=== PATIENT | female | born 1995 | race Caucasian/White ===

== ENCOUNTER 2018-06-11 08:00 | Emergency (ER) | payer OTHER ==
[2018-06-11 08:08] VITALS: BP 132/75
[2018-06-11 08:40] LABS: BILIRUBIN,URINE NEGATIVE (NEGATIVE); GLUCOSE, URINE (UA) NEGATIVE (NEGATIVE); KETONES,URINE (UA) NEGATIVE (NEGATIVE); LEUKOCYTE ESTERASE, URINE NEGATIVE (NEGATIVE); NITRITE,URINE NEGATIVE (NEGATIVE); OCCULT BLOOD,URINE LARGE (NEGATIVE); PROTEIN,URINE NEGATIVE (NEGATIVE); UROBILINOGEN,URINE 0.2 (NORMAL) E.U./dL (NORMAL)
--- NOTE | 2018-06-11 08:40 | ED Physician Documentation ---
PD HPI FEMALE - Stated complaint Stated Complaint: 12 WKS PREG/BLEEDING - Chief complaint Chief Complaint: Abd Pain - History obtained from History obtained from: Patient, Family - History of Present Illness Timing - onset: Yesterday Timing - duration: Days (1) Timing - details: Gradual onset Pain level max: 3 Pain level max: 3 Associated symptoms: Pelvic pain (Cramping), Vaginal bleeding. No: Vaginal discharge Contributing factors: (Approximately 12 weeks EGA) OB-HAM FACER History: G (3), P (0), Termination(s) (1), Miscarriage(s) (1) Recently seen: Not recently seen Review of Systems Constitutional: denies: Fever, Chills Respiratory: denies: Cough GI: reports: Abdominal Pain (Crampy pelvic pain). denies: Vomiting : reports: Now EGA (12 weeks). denies: Dysuria, Frequency, Hesitancy Skin: denies: Rash Musculoskeletal: denies: Neck pain, Back pain Neurologic: denies: Headache PD PAST MEDICAL HISTORY - Past Medical History Past Medical History: No - Past Surgical History Past Surgical History: No - Present Medications Home Medications: Ambulatory Orders Medication Instructions Recorded Confirmed Pnv No.95/Ferrous Fum/Folic AC 1 each PO 06/11/18 [ Caplet] - Allergies Allergies/Adverse Reactions: Allergies Allergy/AdvReac Type Severity Reaction Status Date / Time No Known Drug Allergies Allergy Verified 06/11/18 08:08 - Living Situation Living Situation: reports: With family Living Arrangement: reports: At home - Social History Does the pt drink ETOH?: No Does the pt have substance abuse?: No - Family History Family history: reports: Non contributory PD ED PE NORMAL - Vitals Vital signs reviewed: Yes - General General: Alert and oriented X 3, No acute distress - HEENT HEENT: Moist mucous membranes - Neck Neck: Supple, no meningeal sign - Cardiac Cardiac: RRR, Strong equal pulses - Respiratory Respiratory: No respiratory distress, Clear bilaterally - Abdomen Abdomen: Soft, Non tender, Non distended - Derm Derm: Warm and dry - Extremities Extremities: No edema - Neuro Neuro: Alert and oriented X 3 - Psych Psych: Normal mood, Normal affect Results - Vitals Vitals: Vital Signs - 24 hr 06/11/18 08:06 Temperature 36.7 C Heart Rate 94 Respiratory 18 Rate Blood Pressure 132/75 H O2 Saturation 98 Oxygen O2 Source Room air - Labs Labs: Laboratory Tests 06/11/18 06/11/18 06/11/18 08:15 08:40 08:40 WBC 9.4 RBC 4.29 Hgb 13.2 Hct 39.2 MCV 91.2 MCH 30.7 MCHC 33.7 RDW 14.3 Plt Count 169 MPV 9.7 Neut # (Auto) 6.6 Lymph # (Auto) 1.9 [place] # (Auto) 0.7 Eos # (Auto) 0.1 Baso # (Auto) 0.0 Absolute Nucleated RBC 0.00 Nucleated RBC % 0.1 Sodium 136 Potassium 3.8 Chloride 104 Carbon Dioxide 22 Anion Gap 10.0 BUN 9 Creatinine 0.5 Estimated GFR (MDRD) 152 Glucose 93 Calcium 9.0 Total Bilirubin 0.4 AST 23 ALT 27 Alkaline Phosphatase 47 Total Protein 6.9 Albumin 4.2 Globulin 2.7 Albumin/Globulin Ratio 1.6 Lipase 25 HCG, Quant Urine Color YELLOW Urine Clarity HAZY Urine pH 7.0 Ur Specific [place] 1.015 Urine Protein NEGATIVE Urine Glucose (UA) NEGATIVE Urine Ketones NEGATIVE Urine Occult Blood LARGE H Urine Nitrite NEGATIVE Urine Bilirubin NEGATIVE Urine Urobilinogen 0.2 (NORMAL) Ur Leukocyte Esterase NEGATIVE Urine RBC 0-5 Urine WBC 0-3 Ur Squamous Epith Cells MANY Squamous H Amorphous Sediment Marked Urine Bacteria Few Urine Mucus Few Strands Ur Microscopic Review INDICATED Urine Culture Comments NOT INDICATED Urine HCG, Qual POSITIVE 06/11/18 08:40 WBC RBC Hgb Hct MCV MCH MCHC RDW Plt Count MPV Neut # (Auto) Lymph # (Auto) [place] # (Auto) Eos # (Auto) Baso # (Auto) Absolute Nucleated RBC Nucleated RBC % Sodium Potassium Chloride Carbon Dioxide Anion Gap BUN Creatinine Estimated GFR (MDRD) Glucose Calcium Total Bilirubin AST ALT Alkaline Phosphatase Total Protein Albumin Globulin Albumin/Globulin Ratio Lipase HCG, Quant 94088.00 Urine Color Urine Clarity Urine pH Ur Specific [place] Urine Protein Urine Glucose (UA) Urine Ketones Urine Occult Blood Urine Nitrite Urine Bilirubin Urine Urobilinogen Ur Leukocyte Esterase Urine RBC Urine WBC Ur Squamous Epith Cells Amorphous Sediment Urine Bacteria Urine Mucus Ur Microscopic Review Urine Culture Comments Urine HCG, Qual - Rads (name of study) OB US Radiology: Prelim report reviewed, EMP read contemporaneously, See rad report (Single viable intrauterine at EGA 12 weeks 0 days with MARILIA 12/24/2018 based on crown-rump length, which is concordant with clinical dates. 2. Assigned dating is MARILIA 12/26/2018 based on LMP. 3. No subchorionic hemorrhage or other complications. 4. Both ovaries and adnexa are normal. ) PD MEDICAL DECISION MAKING - ED course Complexity details: reviewed results, re-evaluated patient, considered differential, d/w patient, d/w family ED course: Pt with threatened . Normal labs and US. viable IUP. Will follow up with OB. Patient counseled regarding signs and symptoms for which I believe and urgent re-evaluation would be necessary. Patient with good understanding of and agreement to plan and is comfortable going home at this time This document was made in part using voice recognition software. While efforts are made to proofread this document, sound alike and grammatical errors may occur. Departure - Departure Disposition: 01 Home, Self Care Clinical Impression: Threatened affecting intrauterine Condition: Good Instructions: ED Miscarriage Poss Follow-Up: Jammie Hogan, [employer] OPERATOR [Primary Care Provider] - Within 3 Days Comments: Follow-up with your doctor in 3-4 days for repeat hCG. Your hCG is approximately 23,424 today. Your estimated gestational age is 12 weeks and 0 days. You there is an intrauterine with normal cardiac activity. Return if you worsen. Discharge Date/Time: 06/11/18 09:45
[2018-06-11 08:48] LABS: CLARITY,URINE HAZY (CLEAR); HCG UR QUAL POSITIVE
[2018-06-11 08:48] LABS: BASOPHILS % (AUTO) 0.5 %; EOSINOPHILS # (AUTO) 0.1 10^3/uL (0.0-0.7); EOSINOPHILS % (AUTO) 1.3 %; HGB - HEMOGLOBIN 13.2 g/dL (12.0-16.0); LYMPHOCYTES # (AUTO) 1.9 10^3/uL (1.5-3.5); LYMPHOCYTES % (AUTO) 20.3 %; MEAN CORPUSCULAR HEMOGLOBIN 30.7 pg (27.0-31.0); MEAN CORPUSCULAR HGB CONC 33.7 g/dL (32.0-36.0); MEAN CORPUSCULAR VOLUME 91.2 fL (81.0-99.0); MEAN PLATELET VOLUME 9.7 fL (7.9-10.8); MONOCYTES # (AUTO) 0.7 10^3/uL (0.0-1.0); NEUTROPHILS # (AUTO) 6.6 10^3/uL (1.5-6.6); NEUTROPHILS % (AUTO) 69.9 %; PLT - PLATELET COUNT 169 10^3/uL (130-450); RED BLOOD COUNT 4.29 10^6/uL (4.20-5.40); RED CELL DISTRIBUTION WIDTH 14.3 % (12.0-15.0); WHITE BLOOD COUNT 9.4 x10^3/uL (4.8-10.8)
[2018-06-11 09:00] LABS: AMORPHOUS SEDIMENT,UR Marked /LPF; BACTERIA,URINE Few /HPF (None Seen); RBC,URINE 0-5 /HPF (0-5); SQUAMOUS EPITHELIAL CELL,UR MANY Squamous (<= Few)
[2018-06-11 09:01] LABS: MUCUS,URINE Few Strands
[2018-06-11 09:09] LABS: ALBUMIN 4.2 g/dL (3.2-5.5); ALBUMIN/GLOBULIN RATIO 1.6 (1.0-2.2); BILIRUBIN,TOTAL 0.4 mg/dL (0.2-1.0); CREATININE 0.5 mg/dL (0.4-1.0); TOTAL PROTEIN 6.9 g/dL (6.7-8.2)
--- NOTE | 2018-06-11 09:56 | Ultrasound Report ---
Reason: 12 weeks preg VB Procedure Date: 06/11/2018 Accession Number: [id number] / [id number] Procedure: US - OB First Trimester CPT Code: FULL RESULT: EXAM: FIRST TRIMESTER OBSTETRIC ULTRASOUND (Less than 11 weeks) EXAM DATE: 06/11/2018 09:21 AM. CLINICAL HISTORY: 12-week , vaginal bleeding. LMP: Unknown. COMPARISONS: None. TECHNIQUE: Transabdominal only ultrasound examination with static image documentation. CLINICAL DATES: EGA 11 weeks 5 days with MARILIA 12/26/2018 based on LMP of 03/21/2018. ASSESSMENT: Gestational Sac: Single intrauterine. Embryo: CRL (crown-rump length) 54.1 mm = 12 weeks 0 days with an MARILIA of 12/24/2018. Cardiac activity: 163 beats per minute. Yolk sac: Not seen. Amniotic fluid: Not accurately assessed at this gestational age. Early placenta: Anterior fundal position. Other: No perigestational fluid collection demonstrated. Early anatomy: Normal choroid plexus, heart, cord insertion, anterior abdominal wall and upper and lower extremities. MATERNAL STRUCTURES: Uterus: Anteverted. Unremarkable. Cervix: Closed. Right Ovary/Adnexa: The ovary measures 2.9 x 2.3 x 3 cm, volume 10.1 cc. Unremarkable. Left Ovary/Adnexa: The ovary measures 3.2 x 2.7 x 3.5 cm, volume 16 cc. Unremarkable. Free Fluid: None. Other: None. IMPRESSION: 1. Single viable intrauterine at EGA 12 weeks 0 days with MARILIA 12/24/2018 based on crown-rump length, which is concordant with clinical dates. 2. Assigned dating is MARILIA 12/26/2018 based on LMP. 3. No subchorionic hemorrhage or other complications. 4. Both ovaries and adnexa are normal. RADIA
== END 2018-06-11 09:45 | disposition home or self-care (01) ==
LOC: ED 08:00
DX: O20.0 Threatened abortion (principal); Z3A.12 12 weeks gestation of pregnancy
CPT/HCPCS: 36415; 76801; 80053; 81001; 81003; 81025; 83690; 84702; 85025; 87086; 99282; 99284

== ENCOUNTER 2018-12-15 20:51 | Outpatient (CLI) | payer BC, OTHER ==
[2018-12-15 21:07] VITALS: BP 108/73
== END 2018-12-15 21:47 | disposition home or self-care (01) ==
LOC: WFO 20:51 → FBP 20:54 → WFO 21:47
PROVIDERS: ATTEND Obstetrics & Gynecology
DX: Z34.83 Encounter for supervision of other normal pregnancy, third trimester (principal); Z3A.38 38 weeks gestation of pregnancy
CPT/HCPCS: 99213

== ENCOUNTER 2018-12-16 02:25 | Outpatient (CLI) | payer BC, OTHER ==
[2018-12-16 02:34] VITALS: BP 101/67
--- NOTE | 2018-12-16 06:36 | PROVIDER PROGRESS NOTE ---
- HPI Chief Complaint: Labor Check (23 yo at 38+4 wga presented to triage for ctx q6-8min. No LOF, no VB, reports FM. No reported complications, followed at [facility].) Current : Current EDU 12/26/18 Gestation 38 Weeks and 4 Days 3 Para 0 Vital Signs Temperature 36.4 C L 12/16/18 02:32 Heart Rate 70 12/16/18 02:32 Respiratory Rate 16 12/16/18 02:32 Blood Pressure 101/67 12/16/18 02:32 O2 Saturation 100 12/16/18 02:32 Temperature 36.4 C L 12/16/18 02:32 Heart Rate 70 12/16/18 02:32 Respiratory Rate 16 12/16/18 02:32 Blood Pressure 101/67 12/16/18 02:32 O2 Saturation 100 12/16/18 02:32 - Exam SVE by RN initially 1/50/-3. Pt went home and returned approximately 6 hours later, changed to 2-3/50/-3. Walked for 2h and remained 3/50/-3. - Procedures OB Procedure Performed: NST NST Procedure: FHR 130-145, moderate variability, spontaneous accels, no decels. Infrequent ctx at initial evaluation, q4-6min on return 16DEC2018. Service Date of procedure: 12/16/18 Findings: Reactive and reassuring tracing. - Plan Plan: 23 yo at 38+4 wga with ctx. VS wnl, wellbeing demonstrated with reactive NST. Cervix with slow change from 1-->3/50/-3 over 8 hours, essentially unchanged over 2h at last check. Pt reassured, likely early labor. Anticipate transition to active labor, but encouraged pt to rest, hydrate. Return for worsening ctx, LOF, VB or decreased FM. Pt expressed understanding and agreement with plan. Note, pt seen and evaluated by RN, care plan discussed with myself prior to discharge.
[2018-12-16] MEDS ORDERED: SODIUM CHLORIDE FLUSH 0.9% 10 ML SYRINGE ONE (09:14)
[2018-12-16] MEDS ORDERED: LACTATED RINGERS 1,000 ML IV ONE ×2 (09:14→10:07)
[2018-12-16] MEDS ORDERED: OXYTOCIN/SODIUM CHLORIDE 500 ML IV ONE (10:08)
--- NOTE | 2018-12-18 11:48 | PROVIDER PROGRESS NOTE ---
- HPI Chief Complaint: Labor Check Current : Current EDU 12/26/18 Gestation 38 Weeks and 4 Days 3 Para 0 Vital Signs Temperature 36.4 C L 12/16/18 02:32 Heart Rate 70 12/16/18 02:32 Respiratory Rate 16 12/16/18 02:32 Blood Pressure 101/67 12/16/18 02:32 O2 Saturation 100 12/16/18 02:32 Temperature 36.4 C L 12/16/18 02:32 Heart Rate 70 12/16/18 02:32 Respiratory Rate 16 12/16/18 02:32 Blood Pressure 101/67 12/16/18 02:32 O2 Saturation 100 12/16/18 02:32 - Exam Pt presented to triage overnight 25OCT-OCT. Seen by RN on initial presentation and . - Procedures OB Procedure Performed: NST Diagnosis/Indication for NST: Other NST Procedure: For labor check Service Date of procedure: 12/15/18 Procedure Details: Reactive and reassuring. - Plan Plan: Pt offered 2 hour walk and recheck versus return home and return for worsening symptoms. Chose to return home and returned to triage 6 hours later on the . Please see separate note documenting return on the the .
== END 2018-12-16 05:15 | disposition home or self-care (01) ==
LOC: WFO 02:25 → FBP 02:26 → WFO 05:15
PROVIDERS: ATTEND Obstetrics & Gynecology
DX: Z34.93 Encounter for supervision of normal pregnancy, unspecified, third trimester (principal)

== ENCOUNTER 2018-12-16 08:28 | Inpatient (IN) | payer BC, OTHER ==
[2018-12-16] MEDS ORDERED: SODIUM CHLORIDE FLUSH 0.9% 10 ML SYRINGE IVP PRN (09:05)
[2018-12-16 09:51] LABS: BASOPHILS # (AUTO) 0.1 10^3/uL (0.0-0.1); BASOPHILS % (AUTO) 0.3 %; EOSINOPHILS % (AUTO) 0.2 %; HGB - HEMOGLOBIN 11.8 g/dL (12.0-16.0); LYMPHOCYTES # (AUTO) 1.8 10^3/uL (1.5-3.5); LYMPHOCYTES % (AUTO) 9.8 %; MEAN CORPUSCULAR HEMOGLOBIN 29.5 pg (27.0-31.0); MEAN CORPUSCULAR HGB CONC 33.2 g/dL (32.0-36.0); MEAN CORPUSCULAR VOLUME 88.8 fL (81.0-99.0); MEAN PLATELET VOLUME 13.1 fL (7.9-10.8); MONOCYTES # (AUTO) 1.1 10^3/uL (0.0-1.0); MONOCYTES % (AUTO) 5.9 %; NEUTROPHILS # (AUTO) 14.8 10^3/uL (1.5-6.6); NEUTROPHILS % (AUTO) 82.5 %; PLT - PLATELET COUNT 226 10^3/uL (130-450); RED CELL DISTRIBUTION WIDTH 13.9 % (12.0-15.0)
[2018-12-16] MEDS ORDERED: ROPIVACAINE 0.2% 200 MG/100 ML BAG EP ONE (09:59)
[2018-12-16] MEDS: LACTATED RINGERS 1,000 ML IV SCH ×2 (10:20→17:28)
[2018-12-16] MEDS ORDERED: NALOXONE 0.4 MG/ML VIAL IVP PRN (10:21)
[2018-12-16] MEDS ORDERED: LACTATED RINGERS 500 ML IV ONE (10:21)
[2018-12-16] MEDS ORDERED: ROPIVACAINE 0.2% 200 MG/100 ML BAG EP PRN ×2 (10:21→17:16)
[2018-12-16] MEDS ORDERED: ePHEDrine 50 MG/ML VIAL IVP PRN (10:21)
[2018-12-16] MEDS ORDERED: ONDANSETRON 4 MG/2 ML VIAL IVP PRN (10:21)
--- NOTE | 2018-12-16 10:21 | ANESTHESIA ---
Pre-Anesthesia VS, & Labs - Diagnosis Active labor - Procedure vaginal delivery Vital Signs: Temp Pulse Resp BP Pulse Ox 36.7 C 63 20 115/70 100 12/16/18 08:46 12/16/18 08:46 12/16/18 08:46 12/16/18 08:46 12/16/18 08:46 Height 5 ft 10 in Weight (kg) 94.347 kg Body Mass Index 24.3 - NPO Other (clear liquids) - Is Patient ?: Yes - Lab Results Current Lab Results: Laboratory Tests 12/16/18 09:20: WBC 18.0 H, RBC 4.00 L, Hgb 11.8 L, Hct 35.5 L, MCV 88.8, MCH 29.5, MCHC 33.2, RDW 13.9, Plt Count 226, MPV 13.1 H, Neut # (Auto) 14.8 H, Lymph # (Auto) 1.8, [place] # (Auto) 1.1 H, Eos # (Auto) 0.0, Baso # (Auto) 0.1, Absolute Nucleated RBC 0.00, Nucleated RBC % 0.0 Fish Bones: 12/16/18 09:20 Home Medications and Allergies Active Medications Lactated Ringer's (Lr) 1,000 mls @ 150 mls/hr IV .Q6H40M DIEGO Sodium Chloride (Normal Saline Flush 0.9%) 10 ml IVP PRN PRN PRN Reason: NEEDED PER PROVIDER ORDERS Sodium Chloride (Normal Saline Flush 0.9%) 10 ml IVP 0100,0900,1700 DIEGO Pnv No.95/Ferrous Fum/Folic AC [ Caplet] 1 each PO 06/11/18 Allergies/Adverse Reactions: Allergies Allergy/AdvReac Type Severity Reaction Status Date / Time No Known Drug Allergies Allergy Verified 06/11/18 08:08 Anes History & Medical History - Anesthetic History Anesthesia Complications: reports: No previous complications - Medical History Cardiovascular: reports: None Pulmonary: reports: None Gastrointestinal: reports: None Urinary: reports: None Neuro: reports: None Musculoskeletal: reports: None Endocrine/Autoimmune: reports: None Blood Disorders: reports: None Skin: reports: None Smoking Status: Current every day smoker (1/2 pack per day) Psychosocial: reports: No issues indicated - Surgical History Eyes Ears Nose Throat (EENT): Tonsil/Adenoidectomy - Obstetrical History : 3 Parity: 0 Events: positive: None Complications: positive: None Exam General: Alert, Oriented x3, Cooperative, No acute distress Dental: WNL Mouth Openin Fingerbreadth Neck Mobility: Normal Mallampati classification: I Thyromental Distance: 4-6 cm Respiratory: Lungs clear, Normal breath sounds, No respiratory distress, No accessory muscle use Cardiovascular: Regular rate, Normal S1, Normal S2, No murmurs Mental/Cognitive Status: Alert/Oriented X3, Normal for patient Plan Anesthesia Type: Epidural Consent for Procedure(s) Verified and Reviewed: Yes Code Status: Attempt Resuscitation ASA classification: 2-Mild systemic disease Is this case an emergency?: No
[2018-12-16] MEDS ORDERED: fentaNYL 100 MCG/2 ML VIAL ONE ×2 (10:37→20:20)
[2018-12-16] MEDS ORDERED: SODIUM CHLORIDE 0.9% 10 ML ONE ×2 (10:37→20:20)
[2018-12-16] MEDS ORDERED: OXYTOCIN/SODIUM CHLORIDE 500 ML IV SCH (15:02)
--- NOTE | 2018-12-16 17:15 | ANESTHESIA PROCEDURE NOTE ---
Anesthesia Epidural Template - Other Comments Other Comments: Patient reported increased pain on right side. Left side t-10 level, right side L-1 level, with hot spot noted in right lower quadrant. Epidural drip changed to 12ml every 45 mins. Bolus of ropivicaine 12ml given and patient reports improvement of pain. If epidural continues to be spotty, will replace at higher level.
--- NOTE | 2018-12-16 17:59 | PREOP HISTORY & PHYSICAL ---
DATE OF SERVICE: 12/16/2018 Physician: Sergey Borden MD IDENTIFICATION: A 23-year-old. She is G3, P0, AB2. Her EDC is 12/26/2018, confirmed with ultrasound at 10 weeks' EGA. CHIEF COMPLAINT: Active labor. HISTORY OF PRESENT ILLNESS: Patient developed strong uterine contractions this morning. She was initially noted to be roughly 4 minutes apart. On her exam at Labor and Delivery, she was 4 cm. She was intact. OBSTETRIC HISTORY: Patient started her OB care at roughly 10 weeks EGA. Her course was complicated with tobacco use as well as marijuana use. She ceased marijuana roughly care home through her . She has currently cut her cigarettes down to a half pack of cigarettes per day. She has been encouraged cessation. Her labs show her to be A positive. Her 50 gram Glucola was 88. She is HIV negative, hepatitis B negative as well as C. Her rubella is a low positive. Her RPR is also noted to be negative as well as her GC and chlamydia. Her course has been significant in that she is noted to have an LGA baby at roughly 37 weeks. PAST MEDICAL HISTORY: Patient denies any hypertensive, diabetic, cardiac, or pulmonary history. SURGICAL HISTORY: Patient denies any surgeries at this time. ALLERGIES: NONE KNOWN. CURRENT MEDICATIONS: vitamins. HABITS: Patient smokes one-half pack of cigarettes per day. Denies use of alcohol, street, or addictive drugs. PHYSICAL EXAMINATION GENERAL: Patient is a well-developed, well-nourished white female. She has currently had an epidural placed. VITAL SIGNS: At this time, 115/70, temperature is 36.7, respirations are 20. HEENT: Pupils are equal and round. Extraocular muscles are intact. Thyroid is not palpably enlarged. HEART: Regular rate and rhythm without murmurs. LUNGS: Lung burgess are clear without rales or wheezes. BACK: No spinal or CVA tenderness noted. ABDOMEN: Patient is gravid, uterus is enlarged. PELVIC: Cervical examination shows her to be 6 cm. She is 90% effaced, -1. Membranes were ruptured. Clear amniotic fluid was encountered. IMPRESSION 1. At 38 weeks 3 days' estimated gestational age. 2. Possible hsrsp-gwo-abnbagzkicg-age baby. 3. History of cigarette smoking. PLAN: Epidural has been placed for labor analgesia, membranes have been ruptured. Anticipate vaginal delivery. TD: 12/16/2018 12:50 MTDD
[2018-12-16] MEDS: SODIUM CHLORIDE FLUSH 0.9% 10 ML SYRINGE IVP SCH (18:44)
--- NOTE | 2018-12-16 19:15 | PROVIDER PROGRESS NOTE ---
Labor Progress Note - Uterine Monitoring Uterine Monitoring Mode: positive: External toco : 2-3 Contraction Intensity: positive: Strong Uterine Resting Tone: positive: Soft - Monitoring Monitor Mode: positive: External ultrasound Heart Rate Baseline: 130 Heart Rate Variability: positive: Moderate (6-25 bmp) Accelerations: positive: Present, 15x15 Decelerations: positive: None Strip Review: positive: Category I - Vaginal Exam Dilation (in cm): Ant Lip Effacement (%): 100% Station: 1 Cervical Position: Anterior - Labor Progress Note Labor Progress Note/Additional Text: excellent progress. JIM continue.
[2018-12-16] MEDS ORDERED: ONDANSETRON 4 MG/2 ML VIAL IVP ONE (20:17)
[2018-12-16] MEDS ORDERED: LIDOCAINE-PF 2% 10 ML AMP SUBQ ONE (20:21)
--- NOTE | 2018-12-16 20:21 | ANESTHESIA PROCEDURE NOTE ---
Anesthesia Epidural Template - Other Comments Other Comments: Patient c/o increased pain. Epidural bolused with 5ml of 2% lidocaine with 100mcg fentanyl and 3ml PF NS. Comfortable with contractions.
[2018-12-17] MEDS ORDERED: LIDOCAINE-MPF 1% 30 ML VIAL ONE (00:20)
[2018-12-17] MEDS ORDERED: diphenhydrAMINE 25 MG CAPSULE PO PRN (01:01)
[2018-12-17] MEDS ORDERED: oxyCODONE 5 MG TABLET PO PRN (01:01)
[2018-12-17] MEDS ORDERED: MEASLES,MUMPS & RUBELLA VACC 0.5 ML VIAL SUBQ ONE (01:01)
[2018-12-17] MEDS ORDERED: HYDROCORTISONE 1% CREAM 28 GM TUBE PR PRN (01:01)
[2018-12-17] MEDS ORDERED: WITCH HAZEL/GLYCERIN 1 PAD TOP PRN (01:01)
--- NOTE | 2018-12-17 01:15 | DELIVERY NOTE ---
Delivery Note - Labor Labor: positive: Spontaneous, Augmented by ARM, Augmented by oxytocin - Delivery Method Infant Delivery Method: positive: Spontaneous vaginal delivery - Presentation Presentation: positive: Vertex, JIM - right occiput anterior - Nuchal Cord Nuchal Cord: positive: None - Anesthetic Anesthetic Type: Anesthetic: positive: Lidocaine - 1% plain Volume: positive: Other (30 ml) - Amniotic Fluid Description Amniotic Fluid Description: positive: Clear - Episiotomy Type Episiotomy Type: positive: None - Laceration Laceration: positive: 2nd degree - Suture Suture Type: positive: Vicryl Suture Size: positive: 3-0 - Delivery Outcome Delivery Outcome: positive: Livebirth - Serafina Serafina: positive: Placed in direct skin contact with mother, Bulb syringe, Stimulated, Warmed, [place] used sex: positive: Male (09/[birth year]). negative: Female - Cord Cord: positive: 3 vessels - Placenta Placenta: positive: Intact, Spontaneous - Estimated Blood Loss Estimated Blood Loss (in cc): 200 - Delivery Comments (Free Text/Narrative) Delivery Comments (Free Text/Narrative): Pt reached complete at 2154. alowed to labor down adn started pushing at 2255. good progress because of suspected macrosomia delivered at the beginning of a contraction. at 0007 live male infant was delivered over a second degree laceration. shoulders easily delivered. baby placed on the maternal abdomin. cord allowed to stop pulsating then clamped and cut. baby weighed 7lb 5oz. pl acenta followed at 0012 complete. repare with 3-0 vicril and local of 1% lidocane. EBL 200 ml.
[2018-12-17] MEDS: IBUPROFEN 800 MG TABLET PO SCH ×4 (01:41→20:15)
[2018-12-17] MEDS: ACETAMINOPHEN 500 MG TABLET PO SCH ×3 (01:41→18:16)
[2018-12-17] MEDS ORDERED: LACTATED RINGERS 1,000 ML IV SCH (02:00)
[2018-12-17] MEDS: SODIUM CHLORIDE FLUSH 0.9% 10 ML SYRINGE IVP SCH (03:27)
[2018-12-17] MEDS: DOCUSATE SODIUM 100 MG CAPSULE PO SCH ×2 (08:19→20:15)
[2018-12-17] MEDS ORDERED: NICOTINE 14 MG PATCH TOP SCH (09:00)
[2018-12-18] MEDS: ACETAMINOPHEN 500 MG TABLET PO SCH ×2 (01:14→09:29)
[2018-12-18] MEDS: IBUPROFEN 800 MG TABLET PO SCH ×2 (03:58→13:05)
[2018-12-18 09:06] VITALS: BP 102/59
[2018-12-18] MEDS: DOCUSATE SODIUM 100 MG CAPSULE PO SCH (09:29)
--- NOTE | 2018-12-18 10:03 | PROVIDER PROGRESS NOTE ---
Subjective - Prog Note Date Prog Note Date: 12/18/18 Prog Note Time: 09:59 - Subjective Pt reports feeling: Improved (Pain scale 0-1/10. ) Objective - Vital Signs/Intake & Output Reviewed Vital Signs: Yes Vital Signs: Vital Signs x48h Temp Pulse Resp BP Pulse Ox 12/18/18 09:05 36.6 C 72 18 102/59 L 98 Intake & Output: Intake & Output 12/15/18 12/16/18 12/17/18 12/18/18 23:59 23:59 23:59 23:59 Intake Total 2900 1500.0 Output Total 1330 400 Balance 1570 1100.0 - Objective General Appearance: positive: No acute distress, Alert Abdomen: positive: Non-tender, No organomegaly, Nml bowel sounds, Mass (u-2) Back: negative: CVA tenderness (R), CVA tenderness (L) - Lab Results Fish Bones: 12/16/18 09:20 Assessment/Plan - Problem List (1) (spontaneous vaginal delivery) Impression: PPD #2 progressing Discussed breast feeding. contraception Discharge medication: Tylenol Home supply Motrin home supply Colace home supply. RTC one week
--- NOTE | 2018-12-18 10:04 | Discharge Plan ---
Discharge Plan Problem Reviewed?: Yes Disposition: Home, Self Care Condition: Good Diet: Regular Activity Restrictions: pelvic rest 6 weeks Shower Restrictions: No Driving Restrictions: No Weight Bearing: Full Weight No Smoking: If you smoke, Please STOP! Call for help. Follow-up with: Janel Duarte PA-C [Primary Care Provider] -
[2018-12-18] MEDS ORDERED: MEASLES,MUMPS & RUBELLA VACC 0.5 ML VIAL SUBQ ONE (13:00)
--- NOTE | 2018-12-18 14:32 | Labor Flowsheet ---
Labor Flowsheet Datetime Report Generated by CPN: 12/18/2018 14:32 Datetime: 12/18/2018 09:04 VITAL SIGNS NBP Sys/Diane/Mean (mmHg): 102 : 59 : 68 Pulse: 71 LaborFlag: Labor Datetime: 12/17/2018 16:40 SpO2 (%): 100 Datetime: 12/17/2018 00:12 Patient Care Comments: IV pitocin to bolus rate after delivery of placenta Stage 2 Comments: delivery of placenta Datetime: 12/17/2018 00:07 Quality: active push ASSESSMENT A Monitor Mode: External US (Annotations: baseline indeterminate) FHR Baseline Rate : 110-150 Comments: of viable male Datetime: 12/17/2018 00:00 UTERINE ACTIVITY Monitor Mode: Palpation Decelerations: Variable Datetime: 12/16/2018 23:45 Variability: Minimal - Undetectable to <=5 bpm Accelerations: None Category: Category II Datetime: 12/16/2018 23:44 Respirations: 20 PAIN Pain Scale: 4 Datetime: 12/16/2018 23:30 Contraction Comments: active pushing Datetime: 12/16/2018 23:15 Frequency (min): q2-5 Duration (sec): 50-80 (Annotations: active pushing) Pattern: Normal: <= 5 Contractions in 10 Minutes Resting Tone (Palpate): Relaxed Communication Comments: Dr. Giem @ bedside Datetime: 12/16/2018 23:00 COMMUNICATION Communication: RN at Bedside; Call/Page Placed to Provider Provider Notified (Name): Dr. Giem Notification Reason: Status Update Datetime: 12/16/2018 22:58 MEDICATIONS Pitocin (milliunits): Increased to @ 4 Datetime: 12/16/2018 22:55 STAGE 2 Pushing: Coached on Pushing Pushing Position: Pushing Lithotomy Datetime: 12/16/2018 22:53 I/O Interventions: Tellez Discontinued Datetime: 12/16/2018 22:00 Pain Location: Right Hip Datetime: 12/16/2018 21:54 VAGINAL EXAM Dilatation (cm): 10.0 Station: 1 Exam by: K. Shaihardt, RNC Datetime: 12/16/2018 21:51 Hygiene: Underpad Changed Datetime: 12/16/2018 21:46 Temperature (C): 37.0 Datetime: 12/16/2018 20:24 Antiemetics/Antacids: Zofran (mg) @ 4 Medication Comments: zofran given per one time dose order from Dr. Giem Datetime: 12/16/2018 20:00 Pain Assessment Comments: 10 Datetime: 12/16/2018 19:14 Oxygen Method: Room Air Datetime: 12/16/2018 19:08 Effacement (%): 100 Vaginal Bleeding: Normal Show Cervix, Consistency: Soft Position 'A': Right Occipital Anterior Datetime: 12/16/2018 18:54 Anesthesia Level Check: T11 Datetime: 12/16/2018 18:46 Anesthesia Comments: A [place] DIRECT MARKETING ANALYST at bedside Datetime: 12/16/2018 18:29 Monitor Interventions for UA: [place] Adjusted Datetime: 12/16/2018 18:01 Pain Presence: None/Denies Patient Position/Activity: Right Tilt; High Fowlers Datetime: 12/16/2018 17:31 Monitor Interventions for FHR: Ultrasound Adjusted Datetime: 12/16/2018 16:30 Pain Type: Contraction Datetime: 12/16/2018 16:00 Pain Relief Measures: Comfort Measures Pain Coping: Talking Through Contractions Comfort Measures: Breathing/Relaxation; Family Support Datetime: 12/16/2018 14:45 TEACHING Instructional Method: Verbal; Verbalized Understanding Medications: Pitocin Datetime: 12/16/2018 14:39 Cervix, Position: Midposition Datetime: 12/16/2018 14:32 Plan of Care: Labor Labor/Induction: Labor Stages Pain Management: Epidural; Pain Scale/Goals; Comfort Measures Datetime: 12/16/2018 14:00 MATERNAL ASSESSMENT Level of Consciousness: Fully Conscious Headache: Denies Breath Sounds, Left: Clear and Equal Breath Sounds, Right: Clear and Equal Nausea/Vomiting: Denies RUQ Epigastric Pain: Denies Related: Common Discomforts of ; Hydration; Activity and Rest Datetime: 12/16/2018 12:01 Temperature Route: Oral Datetime: 12/16/2018 11:30 FHR Baseline Changes: No Baseline Change Datetime: 12/16/2018 10:37 Membrane Status: Ruptured Membranes Rupture Method: Artificial Amniotic Fluid Color: Clear Amniotic Fluid Amount: Moderate Datetime: 12/16/2018 10:14 Epidural Procedure: Loading Dose Datetime: 12/16/2018 09:57 PROCEDURE TIME OUT Procedure Verify: Correct Patient Identity; Correct Side and Site are Marked; Accurate Procedure Co nsent Form; Agreement on Procedure to be Done; Correct Patient Position; Safety Precautions Based on Patient History or Medication Use ANESTHESIA Anesthesia Plans: Epidural Epidural Positioning: Sitting Datetime: 12/16/2018 09:20 PATIENT CARE IV/Blood Work: IV Started; IV Bolus Started
--- NOTE | 2018-12-25 09:45 | DISCHARGE SUMMARY ---
Physician: Sergey Borden MD DATE OF ADMISSION: 12/16/2018 DATE OF DISCHARGE: 12/18/2018 ADMITTING DIAGNOSES 1. 38.3 weeks. 2. Cigarette smoker. 3. Suspected large for gestational age. 4. The patient is from the [facility]. DISCHARGE DIAGNOSES 1. 38.3 weeks. 2. Cigarette smoker. 3. Suspected large for gestational age. 4. Patient is from the [facility]. 5. Second degree laceration. 6. Spontaneous vaginal delivery, live male , Apgars 8 and 9. PROCEDURES 1. Pitocin augmentation. 2. Artificial rupture of membranes. 3. Epidural. 4. Spontaneous vaginal delivery. 5. Repair of second-degree laceration. PRESENTING HISTORY: Patient is a 23-year-old. She is 3, para 0, AB 2. Her due date was confirmed with ultrasound at 10 weeks EGA. She started her OB care at 10 weeks. She received her care at the [facility]. She is a cigarette smoker and has cut her smoking in half. Sh e also utilize marijuana prior to her . LABS: Showed her to be A positive. Her 50 gram Glucola was 88. She was HIV, hepatitis B and C nega tive. Rubella was low positive. Her RPR was also noted to be negative as well as GC and chlamydia. She had an ultrasound done at 37 weeks, which showed a suspicion for an LGA baby. LABORATORIES: On admission, her white count was 18, hemoglobin was 11.8, hematocrit was 35.5, platel et was 226. HOSPITAL COURSE: Patient was admitted. She had her labor augmented with Pitocin as well as artifici al rupture of membranes. She received an epidural for labor analgesia. The patient reached complete . At 21:54 was allowed to labor down and did not start pushing until 22:55. She progressed well, bu t because of suspected macrosomia, she had Kiarra maneuvers utilized. At 00:07 a live male infant was delivered over a second-degree laceration. Shoulders delivered easily. She suffered a se cond-degree laceration at time of delivery. Placenta followed spontaneously, felt to be intact. The weighed 7 pounds 5 ounces. She had repair of episiotomy with 3-0 Vicryl with local anesthesi a. Estimated blood loss 200 mL. Her course was unremarkable. Her pain was well controll ed on oral medications. DISCHARGE MEDICATIONS 1. Tylenol. 2. Motrin. 3. Colace. She was instructed to follow up in the office in 1 week. TD: 12/25/2018 09:18
== END 2018-12-18 14:20 | disposition home or self-care (01) | DRG 806 ==
LOC: WFO 08:28 → FBP 08:31 → WFO 09:04 → FBP 09:05
PROVIDERS: ADMIT Obstetrics & Gynecology; ATTEND Obstetrics & Gynecology
PROC: 10907ZC Drainage of Amniotic Fluid, Therapeutic from Products of Conception, Via Natural or Artificial Opening (ICD-10-PCS; 2018-12-16)
PROC: 10E0XZZ Delivery of Products of Conception, External Approach (ICD-10-PCS; principal; 2018-12-17)
DX: O36.63X0 Maternal care for excessive fetal growth, third trimester, not applicable or unspecified (principal); O99.324 Drug use complicating childbirth; Z37.0 Single live birth; O70.1 Second degree perineal laceration during delivery; O99.334 Smoking (tobacco) complicating childbirth; F17.210 Nicotine dependence, cigarettes, uncomplicated; F12.90 Cannabis use, unspecified, uncomplicated; Z3A.38 38 weeks gestation of pregnancy
CPT/HCPCS: 85025; 99213; A9270; J7120

== ENCOUNTER 2019-12-24 16:37 | Outpatient (CLI) | payer OTHER | END 2019-12-24 16:38 | disposition home or self-care (01) | LOC: COV 16:37 | PROVIDERS: ATTEND Family Medicine | DX: R05 Cough (principal); Z20.828 Contact with and (suspected) exposure to other viral communicable diseases; R06.02 Shortness of breath; R68.83 Chills (without fever); R09.81 Nasal congestion; R11.2 Nausea with vomiting, unspecified ==

== ENCOUNTER 2020-01-15 08:00 | Outpatient (CLI) | payer OTHER | END 2020-01-15 23:59 | disposition home or self-care (01) | LOC: LAB.R 08:00 | PROVIDERS: ATTEND Obstetrics & Gynecology | DX: Z34.80 Encounter for supervision of other normal pregnancy, unspecified trimester (principal) | CPT/HCPCS: 82731 ==

== ENCOUNTER 2020-02-08 08:00 | Outpatient (CLI) | payer OTHER | END 2020-02-08 23:59 | disposition home or self-care (01) | LOC: LAB.R 08:00 | PROVIDERS: ATTEND Obstetrics & Gynecology | DX: Z36.85 Encounter for antenatal screening for Streptococcus B (principal) | CPT/HCPCS: 87797 ==

== ENCOUNTER 2020-02-14 09:54 | Outpatient (CLI) | payer OTHER ==
[2020-02-14 10:16] VITALS: BP 131/77
--- NOTE | 2020-02-27 13:33 | PROCEDURE REPORT ---
- HPI Diagnosis/Indication for NST: Intrauterine growth restriction Current EDU 02/22/20 Gestation 38 Weeks and 6 Days 4 Para 1 Vital Signs Temperature 36.7 C 02/14/20 10:14 Heart Rate 107 H 02/14/20 10:14 Respiratory Rate 18 02/14/20 10:14 Blood Pressure 131/77 H 02/14/20 10:14 Temperature 36.7 C 02/14/20 10:14 Heart Rate 107 H 02/14/20 10:14 Respiratory Rate 18 02/14/20 10:14 Blood Pressure 131/77 H 02/14/20 10:14 O2 Saturation - NST Procedure NST Procedure Start Date 02/14/20 Start Time 10:05 Stop Time 10:34 Patient States Movement Yes - Results and Plan Findings/Impression: REACTIVE NST Plan: DOS 02/14/2020 CONTINUE ANTINATAL TESTING
== END 2020-02-14 10:48 | disposition home or self-care (01) ==
LOC: WFO 09:54 → FBP 09:56 → WFO 10:48
PROVIDERS: ATTEND Obstetrics & Gynecology
DX: O36.5930 Maternal care for other known or suspected poor fetal growth, third trimester, not applicable or unspecified (principal); Z3A.38 38 weeks gestation of pregnancy
CPT/HCPCS: 59025; 99212

== ENCOUNTER 2020-02-15 05:24 | Inpatient (IN) | payer OTHER ==
[2020-02-15] MEDS ORDERED: OXYTOCIN 10 UNIT/ML VIAL IM PRN (05:48)
[2020-02-15] MEDS ORDERED: OXYTOCIN/SODIUM CHLORIDE 500 ML IV PRN (05:48)
[2020-02-15] MEDS ORDERED: CARBOPROST TROMETHAMINE 250 MCG/ML AMP IM PRN (05:48)
[2020-02-15] MEDS ORDERED: miSOPROStoL 200 MCG TABLET BC PRN (05:48)
[2020-02-15] MEDS ORDERED: TRANEXAMIC ACID 1,000 MG in SODIUM CHLORIDE 0.9% 100ML 100 ML IV PRN (05:48)
[2020-02-15] MEDS ORDERED: SODIUM CHLORIDE FLUSH 0.9% 10 ML SYRINGE IVP PRN (05:48)
[2020-02-15] MEDS ORDERED: LIDOCAINE-MPF 1% 30 ML VIAL ID PRN (05:48)
[2020-02-15] MEDS ORDERED: METHYLERGONOVINE 0.2 MG/ML VIAL IM PRN (05:48)
[2020-02-15] MEDS ORDERED: LACTATED RINGERS 1,000 ML IV SCH ×2 (06:00→09:00)
[2020-02-15 06:18] LABS: BASOPHILS # (AUTO) 0.1 10^3/uL (0.0-0.1); BASOPHILS % (AUTO) 0.4 %; EOSINOPHILS # (AUTO) 0.1 10^3/uL (0.0-0.7); EOSINOPHILS % (AUTO) 0.9 %; HGB - HEMOGLOBIN 10.8 g/dL (12.0-16.0); LYMPHOCYTES # (AUTO) 2.4 10^3/uL (1.5-3.5); LYMPHOCYTES % (AUTO) 15.1 %; MEAN CORPUSCULAR HEMOGLOBIN 27.3 pg (27.0-31.0); MEAN CORPUSCULAR HGB CONC 32.7 g/dL (32.0-36.0); MEAN CORPUSCULAR VOLUME 83.5 fL (81.0-99.0); MEAN PLATELET VOLUME 12.3 fL (7.9-10.8); MONOCYTES # (AUTO) 1.4 10^3/uL (0.0-1.0); MONOCYTES % (AUTO) 8.5 %; NEUTROPHILS # (AUTO) 11.8 10^3/uL (1.5-6.6); PLT - PLATELET COUNT 239 10^3/uL (130-450); RED BLOOD COUNT 3.95 10^6/uL (4.20-5.40); RED CELL DISTRIBUTION WIDTH 15.1 % (12.0-15.0); WHITE BLOOD COUNT 15.9 x10^3/uL (4.8-10.8)
[2020-02-15] MEDS ORDERED: fentaNYL 100 MCG/2 ML VIAL ONE (06:43)
[2020-02-15] MEDS ORDERED: ROPIVACAINE 0.2% 200 MG/100 ML BAG EP ONE (06:44)
[2020-02-15] MEDS ORDERED: BUPIVACAINE 0.25% PF 10 ML VIAL ONE ×2 (06:44→08:08)
[2020-02-15] MEDS ORDERED: METOCLOPRAMIDE 10 MG/2 ML VIAL IVP PRN (07:16)
[2020-02-15] MEDS ORDERED: NALBUPHINE 10 MG/ML AMP IVP PRN (07:16)
[2020-02-15] MEDS ORDERED: ePHEDrine 50 MG/ML VIAL IVP PRN (07:16)
[2020-02-15] MEDS ORDERED: NALOXONE 0.4 MG/ML VIAL IVP PRN (07:16)
[2020-02-15] MEDS ORDERED: ONDANSETRON 4 MG/2 ML VIAL IVP PRN (07:16)
[2020-02-15] MEDS ORDERED: diphenhydrAMINE INJ 50 MG/ML VIAL IVP PRN (07:16)
--- NOTE | 2020-02-15 07:50 | HISTORY & PHYSICAL EXAMINATION ---
Admit History - Smoking Status: Current every day smoker - Mother's Labs Mother's Blood Type: positive: A Mother's RH: positive: Positive GBS: positive: Group B Step Negative Rubella Status: positive: Immune - Other Maternal History Other Maternal History: Patient is a 24-year-old G4, P1 female whose MARILIA is 02/22/2002. Short interpregnancy interval with last delivery 15 months ago Tobacco use during . Exposed to COVID x2 with negative testing Presented in labor with painful contractions and SVE of 4 cm. Last SVE in clinic was 250/-2 at 38 weeks. GBS negative. Membranes intact: no LOF/VB. Endorses FM. Confirmed vertex by us at last visit. Dating confirmed with 8-week ultrasound A pos/Rubella Immune Gentic testing: FAS: Posterior placenta, EFW 339, 3VC Glucola: 81 TDAP 12/18/2019 GBS & GC/CT neg HSV: patient denies history Breast pump Rx - Patient states she has a breast pump MOD:Anticipate Meds/Allgy - Home Medications Home Medications: Ambulatory Orders Medication Instructions Recorded Confirmed Pnv No.95/Ferrous Fum/Folic AC 1 each PO 06/11/18 [ Caplet] - Allergies Allergies/Adverse Reactions: Allergies Allergy/AdvReac Type Severity Reaction Status Date / Time No Known Drug Allergies Allergy Verified 06/11/18 08:08 Review of Systems - Other Findings Other Findings: As per HPI, otherwise remaining systems are negative. Physical - Abdominal Exam Vital Signs: Temp Pulse Resp BP Pulse Ox 97.9 F 92 16 121/68 99 02/15/20 05:51 02/15/20 05:39 02/15/20 05:39 02/15/20 05:39 02/15/20 05:39 Contraction Frequency (min/apart): Q3-4 min Contraction Intensity: positive: Moderate to strong - Monitoring Heart Rate Baseline: 140 mod heather 15x15 accels no decels Strip Review: positive: Category I - Presentation Presentation: positive: Vertex - Vaginal Exam Membranes: positive: Membranes intact Dilation (in cm): 4.5 at admit, now 6 cm Effacement (%): 80 Station: positive: -2 Cervical Position: positive: Midposition - Other Notes Labor Progress Note/Additional Text: GEN: Markedly uncomfortable HEAD: NCAT EYES: No scleral icterus or conjunctival injection NECK: No cervical LAD or TM CV: RRR RESP: CTAB, normal effort ABD: S&NT/ND between contractions PSYCH: appropriate affect NEURO: alert and oriented, normal gait and coordination EXT: WWP Plan for Labor - Plan For Labor Plan for Labor: 24 yo at 39+0 wga here in labor LABOR: Expectant management with AROM as indicated PAIN: Nitrous oxide at admit Requesting epidural upon presentation FWB: Cat I tracing, vertex, GBS neg, well grown MOD: Anticipate
[2020-02-15] MEDS ORDERED: SIMETHICONE CHEW 80 MG TABLET PO PRN (08:44)
[2020-02-15] MEDS ORDERED: ONDANSETRON ODT 4 MG TABLET TL PRN (08:44)
--- NOTE | 2020-02-15 08:51 | DELIVERY NOTE ---
Delivery Note - Labor Labor: positive: Spontaneous - Delivery Method Delivery Method: positive: Spontaneous vaginal delivery - Nuchal Cord Nuchal Cord: positive: None - Anesthetic Anesthetic Type: - Amniotic Fluid Description Amniotic Fluid Description: positive: Clear - Episiotomy Type Episiotomy Type: positive: None - Laceration Laceration: positive: None - Delivery Outcome Delivery Outcome: positive: Livebirth - [place] : positive: Placed in direct skin contact with mother, Bulb syringe, Stimulated, Warmed, [place] used [place] sex: positive: Female - Cord Cord: positive: 3 vessels - Placenta Placenta: positive: Intact, Expressed - Estimated Blood Loss Estimated Blood Loss (in cc): 5 (minimal blood loss) - Post Delivery Events Post Delivery Events: positive: No post delivery events - Delivery Comments (Free Text/Narrative) Delivery Comments (Free Text/Narrative): STAGE I: Patient is a 24 yo at 39+0 wga with complicated by tobacco use and short interpregnancy interval presented with active labor. Initial SVE was 4/60/-2 station, membranes intact. She progressed rapidly to 6 cm in less than an hour. She received nitrous oxide as well as an epidural for pain management. GBS negative. Spontaneous rupture of membranes while initiating at cervical exam at 8:09. Flui8d was clear. Patient progressed to complete at 8:14. Category I tracing throughout Stage I labor. Duration of Stage I labor was 2 hours and 35 minutes. STAGE II: Patient started pushing at 8:15 and infant delivered at 8:17. Patient delivered a viable female from direct OA presentation; weight and Apgars pending. Infant was delivered to maternal chest. Cord was clamped x2 and cut after cord pulsations were complete. No nuchal cord. STAGE III: Placenta delivered at 8:24 with manual expression. It was examined and found to be intact. Perineum was examined and was without lacerations. No appreciable blood loss, EBL documented as 5 cc. Procedure was well tolerated and without complication.
[2020-02-15] MEDS ORDERED: SODIUM CHLORIDE FLUSH 0.9% 10 ML SYRINGE IVP SCH (09:00)
[2020-02-15] MEDS: ACETAMINOPHEN 500 MG TABLET PO PRN ×2 (13:45→23:33)
[2020-02-15] MEDS: IBUPROFEN 600 MG TABLET PO PRN ×2 (13:46→19:33)
--- NOTE | 2020-02-15 14:56 | ANESTHESIA PROCEDURE NOTE ---
Anesthesia Epidural Template - Patient Report Patient Reports: positive: Inadequate control - Plan Plan: positive: Other - Other Comments Other Comments: Patient was having contraction pain 10/10. Intrathecal catheter dosed with 3ml of 0.25% bupivicaine with immediate relief of pain. Will continue intermittent dosing of intrathecal catheter to maintain labor analgesia. Plan on keeping catheter in place for 24 hours to decrease risk of PDPH.
[2020-02-15] MEDS: NICOTINE 14 MG PATCH TOP SCH (20:05)
[2020-02-16] MEDS: IBUPROFEN 600 MG TABLET PO PRN ×3 (01:30→13:42)
[2020-02-16] MEDS: ACETAMINOPHEN 500 MG TABLET PO PRN (08:00)
[2020-02-16] MEDS ORDERED: NICOTINE 14 MG PATCH TOP SCH (09:00)
[2020-02-16] MEDS: NICOTINE 14 MG PATCH TOP SCH (09:58)
--- NOTE | 2020-02-16 10:02 | CONSULTATION NOTE ---
Consultation Report: Called to bedside to evaluate patient for spinal headache. Had intrathecal catheter placed early AM yesterday. Delivered shortly afterwards. Catheter left in place for 24 hours. Patient lying in bed in 45 degree angle holding . Has smile, denies headache at the moment. Denies visual changes or ringing in the ears. States initial pain was during the night when she got up to go to the bathroom and was an ache at the base of the neck rated 2/10. Very early this morning when getting up to bathroom had a frontal headache rated 4/10. Also described a left arm pain/soreness. Was given Tylenol to good effect. Patient was instructed in the physiology of a spinal headache and options were discussed-conservative measures with pushing caffeinated fluids, analgesics and taking it easy to epidural blood patch. Since RICKETTS appears to be mild a conservative approach was offered and patient agreed. The intrathecal catheter was bolused with 7cc of sterile normal saline and was removed with tip intact. Catheter site clean w/o redness swelling or bleeding. Patient was instructed to push caffeinated fluids, limit activity and no liftin g. Has 18mo old at home. However has both moms at home to help. To take Tylenol as needed. Pt was instructed that if headache, when she stands or sits up gets worse and is not relieved with conservative measures, she is to return for evaluation and epidural blood patch. Patient is to be discharged today. Will follow up with patient with a phone call.
--- NOTE | 2020-02-16 11:49 | PROVIDER PROGRESS NOTE ---
Subjective - Prog Note Date Prog Note Date: 02/16/20 Prog Note Time: 11:44 - Subjective Subjective: Patient is up and ambulating, tolerating po, and voiding. Pain is well managed with pain medications. Upright and ambulating and RICKETTS not a major concern. Not worthy of pain rating at present per patient. Objective - Vital Signs/Intake & Output Reviewed Vital Signs: Yes Vital Signs: Vital Signs x48h Temp Pulse Resp BP Pulse Ox 02/16/20 08:12 97.9 F 54 L 18 95/59 L 100 02/16/20 04:00 97.9 F 64 16 91/56 L 100 Intake & Output: Intake & Output 02/13/20 02/14/20 02/15/20 02/16/20 23:59 23:59 23:59 23:59 Intake Total 1500 Output Total 600 Balance 900 - Objective Comments/Other: GEN: NAD HEAD: NCAT EYES: No scleral icterus or conjunctival injection NECK: No cervical LAD or TM CV: RRR RESP: CTAB, normal effort ABD: S&NT/ND PSYCH: appropriate affect NEURO: alert and oriented, normal gait and coordination EXT: WWP - Lab Results Fish Bones: 02/15/20 06:05 Assessment/Plan - Problem List (1) (spontaneous vaginal delivery) Impression: PPD#1 s/p uncomplicated Patient is meeting goals for discharge Routine DC instructions given Discharge to home when cleared by Anesthesia
--- NOTE | 2020-02-16 11:52 | Discharge Plan ---
Discharge Plan Problem Reviewed?: Yes Disposition: Home, Self Care Diet: Regular Shower Restrictions: No (No tub baths or hot tubs for 4 weeks) Driving Restrictions: No Additional Instructions or Follow Up instructions: Nothing in the vagina for 6 weeks: No intercourse, tampons, douching Call for: -Fever greater than 100.5 -Pain that does not improve with pain medication -Heavy bleeding in which you are soaking a pad an hour for 2 hours in a row OTC MEDICATIONS (Patient declined prescriptions): Ibuprofen 600 mg by mouth every 6 hours as needed for pain Acetaminophen 500-1000 mg by mouth every 8 hours as needed for pain Docusate 100-200 mg by mouth twice a day as needed for constipation No Smoking: If you smoke, Please STOP! Call for help. Follow-up with: Sergey Borden MD [Provider Admit Priv/Credential] -
[2020-02-16 11:56] VITALS: BP 95/53
--- NOTE | 2020-02-16 11:56 | DISCHARGE SUMMARY ---
"Discharge Summary Admit Date: 02/15/20 Discharge Date: 02/16/20 Discharging Provider: Anya Code Status: Attempt Resuscitation Discharge Disposition: 01 Home, Self Care - DIAGNOSES Admission Diagnoses: Labor at term IUP at 39+0 wga Discharge Diagnoses with Status of Each Condition: Deliveyr of term gestation - HPI History of Present Illness: Patient is a 24-year-old G4, P1 female whose MARILIA is 02/22/2002 admitted in active labor. Short interpregnancy interval with last delivery 15 months ago Tobacco use during . Exposed to COVID x2 with negative testing Presented in labor with painful contractions and SVE of 4 cm. Last SVE in clinic was 2/50/-2 at 38 weeks. GBS negative. Membranes intact: no LOF/VB. Endorses FM. Confirmed vertex by us at last visit. Dating confirmed with 8-week ultrasound A pos/Rubella Immune Gentic testing: FAS: Posterior placenta, EFW 339, 3VC Glucola: 81 TDAP 12/18/2019 GBS & GC/CT neg HSV: patient denies history Breast pump Rx - Patient states she has a breast pump MOD:Anticipate - CONSULTS | PROCEDURES Consultations: Anesthesia Procedures: Spontaneous vaginal delivery - HOSPITAL COURSE Hospital Course: STAGE I: Patient is a 24 yo at 39+0 wga with complicated by tobacco use and short interpregnancy interval presented with active labor. Initial SVE was 4/60/-2 station, membranes intact. She progressed rapidly to 6 cm in less than an hour. She received nitrous oxide as well as an epidural for pain management. GBS negative. Spontaneous rupture of membranes while initiating at cervical exam at 8:09. Flui8d was clear. Patient progressed to complete at 8:14. Category I tracing throughout Stage I labor. Duration of Stage I labor was 2 hours and 35 minutes. STAGE II: Patient started pushing at 8:15 and infant delivered at 8:17. Patient delivered a viable female from direct OA presentation; weight and Apgars pending. was delivered to maternal chest. Cord was clamped x2 and cut after cord pulsations were complete. No nuchal cord. STAGE III: Placenta delivered at 8:24 with manual expression. It was examined and found to be intact. Perineum was examined and was without lacerations. No appreciable blood loss, EBL documented as 5 cc. course was generally uncomplicated. Treatment with caffeine for mild postural headache after intrrathecal placement of the epidural. Placement was deliberate given rapidity of labor course. No further intervention indicated. Discharged to home on PPD#1. - ALLERGIES Allergies/Adverse Reactions: Allergies Allergy/AdvReac Type Severity Reaction Status Date / Time No Known Drug Allergies Allergy Verified 06/11/18 08:08 - MEDICATIONS Home Medications: Ambulatory Orders Medication Instructions Recorded Confirmed Pnv No.95/Ferrous Fum/Folic AC 1 each PO 06/11/18 [ Caplet] - LABS Result Diagrams: 02/15/20 06:05 - FOLLOW UP Follow Up: [address] Borden - TIME SPENT Time Spent in Discharge (Minutes): 30"
--- NOTE | 2020-02-16 19:48 | Labor Flowsheet ---
Labor Flowsheet Datetime Report Generated by CPN: 02/16/2020 19:48 Datetime: 02/16/2020 11:49 VITAL SIGNS NBP Sys/Diane/Mean (mmHg): 95 : 53 : 64 Pulse: 62 Datetime: 02/15/2020 19:30 SpO2 (%): 100 Datetime: 02/15/2020 08:46 Stage of : Recovery Datetime: 02/15/2020 08:25 MEDICATIONS Pitocin (milliunits): Started @ 999 Datetime: 02/15/2020 08:24 Comments: placenta Datetime: 02/15/2020 08:17 UTERINE ACTIVITY Monitor Mode: External Frequency (min): 2-3 Quality: Strong Duration (sec): 50-70 Pattern: Normal: <= 5 Contractions in 10 Minutes Resting Tone (Palpate): Relaxed ASSESSMENT A Monitor Mode: Telemetry FHR Baseline Rate : 130 Variability: Moderate 6-25 bpm Accelerations: 15X15 Decelerations: None Category: Category I Datetime: 02/15/2020 08:15 STAGE 2 Pushing: Coached on Pushing; Urge to Push Pushing Position: Pushing with Contractions Pushing Progress: Descent with Pushing LaborFlag: Labor Datetime: 02/15/2020 08:09 Membrane Status: Ruptured Membranes Rupture Method: Spontaneous Amniotic Fluid Color: Clear Amniotic Fluid Amount: Moderate Amniotic Fluid Odor: Normal Datetime: 02/15/2020 08:04 PAIN Pain Scale: 3 Epidural Procedure Other: Redose Anesthesia Comments: by QUARRYING SPECIALIST Candelaria Datetime: 02/15/2020 07:59 VAGINAL EXAM Dilatation (cm): 9.5 Effacement (%): 100 Station: 0 Exam by: Dr. Joyner Vaginal Exam Comments: bulging bag Datetime: 02/15/2020 07:41 Provider Notified (Name): QUARRYING SPECIALIST Candelaria Communication Comments: Report to provider about patient's inadequate pain control. Provider to com e evaluate. Datetime: 02/15/2020 07:39 Monitor Interventions for FHR: Ultrasound Adjusted Datetime: 02/15/2020 07:37 Pain Assessment Comments: Patient remains without adequate pain control Datetime: 02/15/2020 07:23 Pain Coping: Breathing Through Contractions Datetime: 02/15/2020 07:14 Patient Position/Activity: Left Tilt Datetime: 02/15/2020 07:03 Pain Presence: Intermittent Pain Type: Contraction Pain Location: Abdomen Datetime: 02/15/2020 06:58 Monitor Interventions for UA: Thomson Adjusted PATIENT CARE Oxygen Method: Room Air Datetime: 02/15/2020 06:54 Epidural Procedure: Loading Dose Datetime: 02/15/2020 06:49 ANESTHESIA Anesthesia Plans: Spinal Datetime: 02/15/2020 06:40 PROCEDURE TIME OUT Procedure Verify: Correct Patient Identity; Correct Side and Site are Marked; Accurate Procedure Co nsent Form; Agreement on Procedure to be Done; Correct Patient Position; Addressed Need to Administer Antibiotics or Fluids for Irrigation; Safety Precautions Based on Patient History or Medication Use Datetime: 02/15/2020 06:37 COMMUNICATION Communication: Provider at Bedside Datetime: 02/15/2020 06:03 Pain Relief Measures: Comfort Measures MATERNAL ASSESSMENT Level of Consciousness: Alert DTR's/Clonus: DTRs 2+; No Clonus Headache: Denies Breath Sounds, Left: Clear and Equal Breath Sounds, Right: Clear and Equal Nausea/Vomiting: Denies RUQ Epigastric Pain: Denies Comfort Measures: Breathing/Relaxation
== END 2020-02-16 15:50 | disposition home or self-care (01) | DRG 807 ==
LOC: WFO 05:24 → FBP 05:36
PROVIDERS: ADMIT Obstetrics & Gynecology; ATTEND Obstetrics & Gynecology
PROC: 10E0XZZ Delivery of Products of Conception, External Approach (ICD-10-PCS; principal; 2020-02-15)
DX: O99.334 Smoking (tobacco) complicating childbirth (principal); Z37.0 Single live birth; O89.4 Spinal and epidural anesthesia-induced headache during the puerperium; Z3A.39 39 weeks gestation of pregnancy
CPT/HCPCS: 85025; 86850; 86900; 86901; 87635; 99213; A9270; J7120

== ENCOUNTER 2020-02-20 10:19 | Emergency (ER) | payer OTHER ==
--- NOTE | 2020-02-20 11:20 | ED Physician Documentation ---
PD HPI HEADACHE - Stated complaint Stated Complaint: HEADACHE - Chief complaint Chief Complaint: Neuro - History obtained from History obtained from: Patient - History of Present Illness Timing - onset: How many days ago (5) Timing - onset during: Light activity, Other (onset of headache after getting epidural for childbirth. She was told the epidural "was a little deep" and they were concerned about her headache being spinal procedural headache. She was to rest, NSAIDs, caffeine at home. But she states she has been able to do very little due to headache upright.) Timing - details: Gradual onset, Waxing and waning (milder resting flat, signficant headache sitting or standing.) Worst headache ever?: Worst headache ever? Location: Back Quality: Throbbing, Aching Associated symptoms: Nausea. No: Fever, Stiff neck, Vomiting Worsened by: No: Light, Noise Contributing factors: Other (epidural for childbirth 5 days ago, when the headache started.). No: Recent illness Similar symptoms before: Has not had sx before Recently seen: Admitted (L&D with with epidural without complications of childbirth, but has had the headache.) Review of Systems Constitutional: denies: Fever, Chills, Myalgias Nose: denies: Rhinorrhea / runny nose, Congestion Throat: denies: Sore throat Respiratory: denies: Cough GI: reports: Abdominal Pain (c/w post childbirth.), Nausea. denies: Vomiting : reports: Vaginal bleeding (c/w post childbirth, decreasing the past several days) Skin: denies: Rash, Lesions PD PAST MEDICAL HISTORY - Past Medical History Past Medical History: No Cardiovascular: None Respiratory: None Neuro: None Endocrine/Autoimmune: None GI: None : None Musculoskeletal: None Derm: None - Past Surgical History Past Surgical History: Yes HEENT: Tonsil/Adenoidectomy - Present Medications Home Medications: Ambulatory Orders Medication Instructions Recorded Confirmed No Known Home Medications 02/20/20 02/20/20 - Allergies Allergies/Adverse Reactions: Allergies Allergy/AdvReac Type Severity Reaction Status Date / Time No Known Drug Allergies Allergy Verified 02/20/20 10:27 - Social History Does the pt smoke?: Yes Smoking Status: Current every day smoker Does the pt drink ETOH?: No Does the pt have substance abuse?: No PD ED PE NORMAL - Vitals Vital signs reviewed: Yes - General General: Alert and oriented X 3, Well developed/nourished - HEENT HEENT: Moist mucous membranes - Neck Neck: Supple, no meningeal sign, No adenopathy - Cardiac Cardiac: RRR, No murmur - Respiratory Respiratory: Clear bilaterally - Abdomen Abdomen: Soft, Non tender, Non distended - Female Female : Deferred - Back Back: No spinal TTP, Other (no redness, swelling nor tenderness at epidural site. ) - Derm Derm: Normal color, Warm and dry - Neuro Neuro: Alert and oriented X 3, No motor deficit, No sensory deficit, Normal speech Eye Opening: Spontaneous Motor: Obeys Commands Verbal: Oriented GCS Score: 15 - Psych Psych: Normal mood, Normal affect Results - Vitals Vitals: Vital Signs - 24 hr 02/20/20 02/20/20 02/20/20 10:23 13:00 13:30 Temperature 36.2 C L Heart Rate 97 52 L 51 L Respiratory 16 16 16 Rate Blood Pressure 124/65 117/80 106/69 O2 Saturation 98 100 100 Oxygen O2 Source Room air - Labs Labs: Laboratory Tests 02/20/20 02/20/20 12:30 12:30 WBC 9.0 RBC 4.44 Hgb 11.7 L Hct 38.0 MCV 85.6 MCH 26.4 L MCHC 30.8 L RDW 15.5 H Plt Count 253 MPV 11.7 H Neut # (Auto) 5.7 Lymph # (Auto) 2.4 [place]ne # (Auto) 0.6 Eos # (Auto) 0.2 Baso # (Auto) 0.1 Absolute Nucleated RBC 0.00 Nucleated RBC % 0.0 Sodium 142 Potassium 3.7 Chloride 106 Carbon Dioxide 22 Anion Gap 14.0 H BUN 11 Creatinine 0.7 Estimated GFR (MDRD) 101 Glucose 71 Calcium 9.1 C-Reactive Protein 1.6 H PD MEDICAL DECISION MAKING - ED course Complexity details: re-evaluated patient (Improved with some IV medication but mainly the blood patch. She is able to stand up and walk to the bathroom and stated minimal headache.), considered differential, d/w patient, d/w network security consultant (Marcelino Macias, Anesthesia, who will see patient in the ER for possible blood patching. ) Departure - Departure Disposition: 01 Home, Self Care Clinical Impression: Post-procedural headache Qualifiers: Encounter type: initial encounter Qualified Code(s): T81.89XA - Other complications of procedures, not elsewhere classified, initial encounter Condition: Stable Record reviewed to determine appropriate education?: Yes Instructions: ED Headache Post Spinal Tap W Patch Follow-Up: [facility] [Provider Group] Comments: Well-hydrated. You may still have some mild headache and so continue the ibuprofen or Tylenol as needed. Otherwise normal diet and just light lifting for 2 to 3 days as directed by the straight knife cutter machine. Discharge Date/Time: 02/20/20 14:16
[2020-02-20] MEDS ORDERED: KETOROLAC 15 MG/ML VIAL IVP STA (11:45)
[2020-02-20] MEDS ORDERED: SODIUM CHLORIDE 0.9% 1,000 ML IV STA ×2 (11:45)
[2020-02-20 12:51] LABS: BASOPHILS # (AUTO) 0.1 10^3/uL (0.0-0.1); BASOPHILS % (AUTO) 0.7 %; EOSINOPHILS # (AUTO) 0.2 10^3/uL (0.0-0.7); EOSINOPHILS % (AUTO) 2.6 %; HGB - HEMOGLOBIN 11.7 g/dL (12.0-16.0); LYMPHOCYTES # (AUTO) 2.4 10^3/uL (1.5-3.5); LYMPHOCYTES % (AUTO) 26.7 %; MEAN CORPUSCULAR HEMOGLOBIN 26.4 pg (27.0-31.0); MEAN CORPUSCULAR HGB CONC 30.8 g/dL (32.0-36.0); MEAN CORPUSCULAR VOLUME 85.6 fL (81.0-99.0); MEAN PLATELET VOLUME 11.7 fL (7.9-10.8); MONOCYTES # (AUTO) 0.6 10^3/uL (0.0-1.0); MONOCYTES % (AUTO) 6.1 %; NEUTROPHILS # (AUTO) 5.7 10^3/uL (1.5-6.6); PLT - PLATELET COUNT 253 10^3/uL (130-450); RED BLOOD COUNT 4.44 10^6/uL (4.20-5.40); RED CELL DISTRIBUTION WIDTH 15.5 % (12.0-15.0)
[2020-02-20 13:07] LABS: CALCIUM 9.1 mg/dL (8.5-10.3); CREATININE 0.7 mg/dL (0.4-1.0); CRP - C-REACTIVE PROTEIN 1.6 mg/dL (0-1.0)
[2020-02-20 15:00] VITALS: BP 106/69
--- NOTE | 2020-02-20 15:11 | ANESTHESIA PROCEDURE NOTE ---
Diagnosis: SPINAL HEADACHE Procedure: epidural blood patch Consent for Procedure(s) Verified and Reviewed: Yes Height and Weight: Height 5 ft 10 in Weight (kg) 92.986 kg Body Mass Index 29.4 Vital Signs: Temp Pulse Resp BP Pulse Ox 36.2 C L 51 L 16 106/69 100 02/20/20 10:23 02/20/20 13:30 02/20/20 13:30 02/20/20 13:30 02/20/20 13:30 Allergies No Known Drug Allergies Allergy (Verified 02/20/20 10:27) ASA classification: 2-Mild systemic disease Is this case an emergency?: No Anes. Monitoring and Equipment: Non-invasive BP, Pulse oximetery, Sterile prep and drape Anes. Procedure Start Time: 12:43 Anes. Procedure Stop Time: 12:56 Procedure Notes: Patient consented and TO with Alireza Kwong CRNA, consent signed. Patient in sitting position, betadine prep, sterile technique. Epidural placed with ANNA with ns, midline at L4-5 (close to needle scab from last time). ANNA at 7 cm, no csf, no heme, no parethesia. 20CC of pt's own blood injected easily. Relief of RICKETTS after 5 min's supine. Instructed patient to lay flat for one hour and no heavy lifting for several days, and to return to ER if further RICKETTS or problems.
== END 2020-02-20 14:16 | disposition home or self-care (01) ==
LOC: ED 10:19
DX: O89.4 Spinal and epidural anesthesia-induced headache during the puerperium (principal); O99.335 Smoking (tobacco) complicating the puerperium; F17.200 Nicotine dependence, unspecified, uncomplicated
CPT/HCPCS: 36415; 80048; 85025; 86140; 96374; 99284